=== PATIENT | female | born 1970 | race Caucasian/White ===

== ENCOUNTER 2017-11-24 12:19 | Outpatient (REF) | payer MEDICAID, SELFPAY ==
[2017-11-27 12:56] LABS: Lyme Ab w Rflx to Lyme Confirm Negative
[2017-11-28 14:06] LABS: Anaplasma phagocytophilum Negative (Negative); B. miyamotoi PCR Negative (Negative); Babesia divergens/MO-1 Negative (Negative); Babesia duncani Negative (Negative); Babesia microti Negative (Negative); Ehrlichia chaffeensis Negative (Negative); Ehrlichia ewingii/canis Negative (Negative); Ehrlichia muris eauclairensis Negative (Negative)
== END 2017-11-24 12:20 ==
LOC: NCHCN 12:19
PROVIDERS: PCP Nurse Practitioner Family; Visit Provider Nurse Practitioner Family
DX: Z11.8 Encounter for screening for other infectious and parasitic diseases (principal)
CPT/HCPCS: 86618; 87798

== ENCOUNTER 2018-05-31 09:15 | Outpatient (REF) | payer MEDICAID, SELFPAY ==
[2018-05-31 21:25] LABS: Hemoglobin A1C 5.8 % (4.5-6.2)
[2018-05-31 21:27] LABS: ALT 24 U/L (12-78); AST 16 U/L (15-37); Alkaline Phosphatase 104 U/L (46-116); Anion Gap 4.8 mmol/L (3-11); BUN 19 mg/dL (7-18); Bilirubin, Total 0.5 mg/dL (0.2-1.0); CO2 32.2 mmol/L (21.0-32.0); CREATININE 0.98 mg/dL (0.55-1.02); Calcium 9.5 mg/dL (8.5-10.1); Chloride 101 mmol/L (98-107); Cholesterol 277 mg/dL (50-200); Glucose 104 mg/dL (70-100); HDL Cholesterol 44 mg/dL (40-60); LDL CHOLESTEROL 186 mg/dL (<100); Potassium 4.4 mmol/L (3.5-5.1); Sodium 138 mmol/L (136-145); Total Protein 7.8 g/dL (6.4-8.2); Triglyceride 203 mg/dL (30-150)
== END 2018-05-31 09:35 ==
LOC: NCHCN 09:15
PROVIDERS: PCP Nurse Practitioner Family; Visit Provider Nurse Practitioner Family
DX: R07.9 Chest pain, unspecified (principal); E66.9 Obesity, unspecified
CPT/HCPCS: 80053; 80061; 83721; 83036

== ENCOUNTER 2018-11-30 13:50 | Outpatient (REF) | payer MEDICAID, SELFPAY ==
[2018-11-30 22:10] LABS: ALT 28 U/L (14-59); AST 16 U/L (15-37); Albumin 4.1 g/dL (3.4-5.0); Alkaline Phosphatase 98 U/L (46-116); Anion Gap 10.4 mmol/L (3-11); BUN 18 mg/dL (7-18); Bilirubin, Total 0.3 mg/dL (0.2-1.0); CO2 28.6 mmol/L (21.0-32.0); CREATININE 1.07 mg/dL (0.55-1.02); Calcium 9.2 mg/dL (8.5-10.1); Calculated LDL 129 mg/dL; Chloride 98 mmol/L (98-107); Cholesterol 200 mg/dL (50-200); Estimated GFR 54.73 (mL/min/1.73m2); Glucose 100 mg/dL (70-100); HDL Cholesterol 50 mg/dL (40-60); Potassium 4.4 mmol/L (3.5-5.1); Sodium 137 mmol/L (136-145); Triglyceride 107 mg/dL (30-150)
== END 2018-11-30 14:10 ==
LOC: NCHCN 13:50
PROVIDERS: PCP Nurse Practitioner Family; Visit Provider Nurse Practitioner Family
DX: R73.09 Other abnormal glucose (principal); I10 Essential (primary) hypertension; E78.5 Hyperlipidemia, unspecified; F41.9 Anxiety disorder, unspecified; M79.7 Fibromyalgia
CPT/HCPCS: 80053; 80061; 83036

== ENCOUNTER 2019-07-30 08:38 | Outpatient (REF) | payer MEDICAID, SELFPAY ==
[2019-07-30 22:09] LABS: Anion Gap 5.7 mmol/L (3-11); BUN 17 mg/dL (7-18); CO2 34.3 mmol/L (21.0-32.0); CREATININE 1.02 mg/dL (0.55-1.02); Calcium 9.1 mg/dL (8.5-10.1); Chloride 98 mmol/L (98-107); Cholesterol 220 mg/dL (<200); Glucose 124 mg/dL (74-106); HDL Cholesterol 34 mg/dL (40-60); Potassium 3.5 mmol/L (3.5-5.1); Sodium 138 mmol/L (136-145); Triglyceride 484 mg/dL (<150)
[2019-07-30 22:14] LABS: Hemoglobin A1C 5.8 % (3.8-5.6)
[2019-07-30 22:21] LABS: LDL CHOLESTEROL 96 mg/dL (<100)
== END 2019-07-30 08:58 ==
LOC: NCHCN 08:38
PROVIDERS: PCP Nurse Practitioner Family; Visit Provider Nurse Practitioner Family
DX: I10 Essential (primary) hypertension (principal); E78.5 Hyperlipidemia, unspecified; R73.03 Prediabetes
CPT/HCPCS: 80048; 80061; 83721; 83036

== ENCOUNTER 2019-12-25 19:43 | Outpatient (REF) | payer MEDICAID, SELFPAY ==
--- NOTE | 2019-12-25 14:45 | SKI_PTH ---
PATIENT: Mili Yu LOC: [facility] U#:[id number] AGE/SX: 49/F ROOM: RE12/25/[address]: Kala Gonzalez : 1970 BED: DIS: 12/25/2019 SPEC #: [id number] RECD: 12/26/19 12:23 STATUS: LASHANDA REQ #: [id number] YUNIOR: 12/25/19 14:[address]: Kala Gonzalez DEPT: Surgical Specimen RECD BY: Mariela Dias ENTERED: 12/26/19 12:23 SP TYPE: VICTORINA DOAN DR: Shivani Jose Tissues: 1 - SKIN BIOPSY(SHAVE/PUNCH) Procedures: SKIN LEVEL 4 Comments: [id number]
== END 2019-12-25 20:03 ==
LOC: NCHCN 19:43
PROVIDERS: PCP Nurse Practitioner Family; Visit Provider Nurse Practitioner Community Health
DX: L43.8 Other lichen planus (principal)
CPT/HCPCS: 88305

== ENCOUNTER 2020-07-28 14:56 | Outpatient (REF) | payer MEDICAID, SELFPAY ==
[2020-07-28 21:17] LABS: Anion Gap 9.5 mmol/L (3-11); BUN 22 mg/dL (7-18); CO2 28.5 mmol/L (21.0-32.0); CREATININE 1.1 mg/dL (0.55-1.02); Calcium 9.3 mg/dL (8.5-10.1); Chloride 102 mmol/L (98-107); Estimated GFR 52.58 (mL/min/1.73m2); Glucose 161 mg/dL (74-106); Magnesium 1.9 mg/dL (1.8-2.4); Sodium 140 mmol/L (136-145); Vitamin B12 881 pg/mL (193-986)
== END 2020-07-28 14:57 | disposition home or self-care (01) ==
LOC: NCHCN 14:56
PROVIDERS: PCP Nurse Practitioner Family; Visit Provider Nurse Practitioner Family
DX: R73.03 Prediabetes (principal); I10 Essential (primary) hypertension; Z79.899 Other long term (current) drug therapy
CPT/HCPCS: 80048; 82607; 83036; 83735

== ENCOUNTER 2021-01-28 15:32 | Outpatient (REF) | payer MEDICAID, SELFPAY ==
[2021-01-28 15:18] LABS: HCT 42.4 % (36.0-46.0); MCH 30.8 pg (27.0-33.0); MCV 93.2 fL (80-95); MPV 10.5 fL (8.0-11.0); Platelet Count 338 10^3/uL (130-400); RBC 4.55 10^6/uL (3.93-5.22); RDW 12.4 % (11.7-14.6); WBC 8.49 10^3/uL (4.4-10.8)
[2021-01-28 15:45] LABS: Anion Gap 9.4 mmol/L (3-11); BUN 16 mg/dL (7-18); CO2 32.6 mmol/L (21.0-32.0); Calcium 9.4 mg/dL (8.5-10.1); Calculated LDL 98 mg/dL (<100); Chloride 100 mmol/L (98-107); Cholesterol 190 mg/dL (<200); Estimated GFR 58.69 (mL/min/1.73m2); Glucose 109 mg/dL (74-106); HDL Cholesterol 46 mg/dL (40-60); Potassium 3.8 mmol/L (3.5-5.1); Sodium 142 mmol/L (136-145); Triglyceride 231 mg/dL (<150)
== END 2021-01-28 15:33 | disposition home or self-care (01) ==
LOC: NCHCN 15:32
PROVIDERS: PCP Nurse Practitioner Family; Visit Provider Nurse Practitioner Family
DX: R53.83 Other fatigue (principal); E78.5 Hyperlipidemia, unspecified; E66.9 Obesity, unspecified
CPT/HCPCS: 80048; 80061; 82306; 85027

== ENCOUNTER 2021-07-27 10:00 | Outpatient (REF) | payer MEDICAID, SELFPAY ==
--- NOTE | 2021-07-27 08:30 | PAPFT_PTH ---
PATIENT: Mili Yu LOC: [facility]#:[id number] AGE/SX: 51/F ROOM: RE07/27/[address]: Shivani Jose : 1970 BED: DIS: 07/27/2021 SPEC #: [id number] RECD: 07/27/21 16:35 STATUS: LASHANDA DAVIS #: [id number] YUNIOR: 07/27/21 08:[address]: Shivani Blum DEPT: [facility] Cytology RECD BY: Mike Tariq Tissues: 1 - CX/ENDOCX FOR PAP SMEARS Procedures: PAP THIN PREP/[facility] Screening HPV DNA PROBE Comments: [id number] (CHLAMYDIA/GC)
--- OUTSIDE RECORDS SUMMARY | 2021-07-27 10:05 | XMS_ITS | CCD ---
:1970 Author Care Team Providers Name Role Phone Ramos MANRIQUEZ Attending Physician Unavailable Vital Signs Unknown or Not Available. Allergies Unknown or Not Available. Procedures Unknown or Not Available. History of Immunizations Unknown or Not Available. Problems Unknown or Not Available. Results [facility] TIA LASSITERX* - Collect Date/[place] e: 03/12/2021 09:49 Test Name Code Test Result Test Units Test Ref Range SOURCE= Anterior nasal N/A Tier- PRE-OP N/A SARS COV2 RNA: 08883-2 NEGATIVE N/A REFERENCE RAN GE: NEGAT Active Medications Unknown or Not Available. Medications Administered During Visit Unknown or Not Available. Encounters Encounter Diagnosis Diagnosis Code Start Date Pre-surgery testing [id number] 03/12/2021 Social History Smoking Status Code Start Date End Date Never smoker [id number] Patient Decision Aids Unknown or Not Available. Discharge Instructions You were admitted to [facility] on 03/12/2021 06:27 with a principal diagnosis of Encounter for preprocedural laboratory examination You had the following tests done: KEISHAJOSE MIXONIX* You were discharged from [facility] on 03/12/2021 06:27 Should you have any questions prior to d ischarge, please contact a member of your healthcare team. If you have left the spital and have any questions, please contact your primary care physician. Chief Complaint and Reason For Visit Unknown or Not Available. Function Status Unknown or Not Available. Plan of Care Unknown or Not Available. Referral/Transition of Care Unknown or Not Available.
--- OUTSIDE RECORDS SUMMARY | 2021-07-27 10:05 | XMS_ITS ---
:1970 Author Care Team Providers Name Role Phone GLENN MANCILLA [employer]ER Primary Care Provider [phone] MICHELL CHAPMAN MD Neurologist [phone] [facility] OTHER [phone] Allergies Code Code System Name Reaction Severity Status Onset [id number] RxNorm Cipro ? ? Active ? Elavil Other ? Active ? [id number] RxNorm Neurontin ? ? Active ? Sulfa ? ? Active ? (Sulfonamide Antibiotics) Medications Name Status Start Date Stop Date ? ? amlodipine besylate (bulk) Completed ? 12/13 5mg tab daily bupropion HCl 150 mg tablet,12 hr sustained-release(sm oking deterrent) Completed ? 12/13/2017 Take 1 tablet twice a day by oral route. cannabidiol (CBD) oral oil Active ? Not a vailable Take by oral route. Crestor 5 mg tablet Active ? Not availabl e Take 1 tablet every day by oral route. Cymbalta 60 mg capsule,delayed release Active ? Not available Take 1 capsule every day by oral route. doxepin 10 mg capsule Active ? Not availa ble take 1 PO QHS fluoxetine 20 mg capsule Completed ? 018 Take 1 capsule every day by oral route. hydrochlorothiazide 25 mg tablet Active ? Not available Take 1 tablet every day by oral route. Imitrex 100 mg tablet Active ? Not availa ble Take 1 tablet twice a day by oral route as needed. lorazepam 0.5 mg tablet Active ? Not avai lable Take 1 tablet by oral route as needed. multivitamin Active ? Not available omeprazole 10 mg capsule,delayed release Active ? Not available Take 1 capsule twice a day by oral route. simvastatin Completed ? 12/13/2017 10mg trazodone 50 mg tablet Completed ? 9 Take 1 tablet by oral route as needed. Problems Name Status Onset Date Source ? Psychophysiologic Insomnia Active 12/13/2017 ? Restless Legs Active 12/13/2017 ? Insomnia Active 05/04/2018 ? Hyperlipidemia Active ? ? Obesity Active ? ? Anxiety Active ? ? Depressive Disorder Active ? ? Obstructive Sleep Apnea Syndrome Active ? ? Migraine Active ? ? Hypertensive Disorder Active ? ? Rhinitis Active ? ? Laryngopharyngeal Reflux Active ? ? Dysmenorrhea Active ? ? Chronic Pelvic Pain of Female Active ? ? Osteoarthritis Active ? ? Degeneration of Intervertebral Disc Active ? ? Tendinitis Active ? ? Ganglion Cyst Active ? ? Plantar Fasciitis Active ? ? Fibromyalgia Active ? ? Neuralgia Active ? ? Fatigue Active ? ? Snoring Active ? ? Atypical Chest Pain Active ? ? Rheumatoid Factor Positive Active ? ? Procedures Date Name Performed by ? 12/13/2017 Polysomnogram [facility] [address] [place] [address] (Work Place) Results Lab Results Date Name Specimen Result Interpretation Description Value Range Status Address ? 01/09/2018 Ferritin, ? No observation ? ? ? [facility] Serum or recorded. (Lab) : [address] 01/09/2018 TSH, Serum, ? No observation ? ? ? [facility] Reflex Free recorded. (L ab): [address] Past Encounters None recorded. Social History Tobacco Smoking Status Never Smoker Vaccine List Vaccine Type COVID-19, mRNA, LNP-S, PF, 100 mcg/0.5 m L dose (Moderna) 07/02/2020?0.5 mL 07/30/2020?0.5 mL Plan of Care Reminders Provider Appointments None ? ? recorded. Lab None ? ? recorded. Referral None ? ? recorded. Procedures None ? ? recorded. Surgeries None ? ? recorded. Imaging None ? ? recorded. Vitals 08/02/2019 10:00AM Office 30 Height Weight BMI 165.1 cm 74.84 kg 27.5 kg/m2 09/07/2018 10:30AM Office 30 Height Weight BMI Blood Pressure 165.1 cm 79.38 kg 29.1 kg/m2 124/90 mm[Hg] 05/04/2018 09:45AM Office 30 Height Weight BMI Blood Pressure 165.1 cm 150/100 mm[Hg] 02/23/2018 11:15AM Office 30 Height Weight BMI Blood Pressure 165.1 cm 80.74 kg 29.6 kg/m2 125/85 mm[Hg] 12/13/2017 10:45AM New Patient 45 Height Weight BMI Blood Pressure 165.1 cm 82.05 kg 30.1 kg/m2 118/94 mm[Hg]
--- OUTSIDE RECORDS SUMMARY | 2021-07-27 10:05 | XMS_ITS | CCD ---
:1970 Author Care Team Providers Name Role Phone Indira MANCILLA Attending Physician Unavailable Vital Signs Unknown or Not Available. Allergies Unknown or Not Available. Procedures Unknown or Not Available. History of Immunizations Unknown or Not Available. Problems Unknown or Not Available. Results Unknown or Not Available. Active Medications Unknown or Not Available. Medications Administered During Visit Unknown or Not Available. Encounters Encounter Diagnosis Diagnosis Code Start Date Screening mammography [id number] 02/09/2021 Social History Smoking Status Code Start Date End Date Never smoker [id number] Patient Decision Aids Unknown or Not Available. Discharge Instructions You were admitted to [facility] on 02/09/2021 11:06 with a principal diagnosis of Encounter for screening salvatore mogram for malignant neoplasm of breast You were discharged from [facility] on 02/09/2021 11:06 Should you have any questions prior to d ischarge, please contact a member of your healthcare team. If you have left the ho spital and have any questions, please contact your primary care physician. Chief Complaint and Reason For Visit Chief Complaint Date of Onset SCR Function Status Unknown or Not Available. Plan of Care Unknown or Not Available. Referral/Transition of Care Unknown or Not Available.
--- OUTSIDE RECORDS SUMMARY | 2021-07-27 10:06 | XMS_ITS | CCD ---
:1970 Author Care Team Providers Name Role Phone MITRARamos Attending Physician Unavailable Vital Signs Vital Sign Value Unit Date/Time Recent/Initial? BP Systolic 130 mmHg 03/15/2021 13:10 Initial VS BP Diastolic 95 mmHg 03/15/2021 13:10 Initial VS Respiratory Rate 14 bpm 03/15/2021 13:10 Initial VS Heart Rate 90 bpm 03/15/2021 13:10 Initial VS O2 % BldC Oximetry 100 % 03/15/2021 13:10 Initi al VS Body Temperature 36.3 degrees 03/15/2021 13:10 Initial VS Allergies Allergy Code Allergy Type Reaction Status SULFA (sulfonamide) 0 Drug allergy RASH Active PINEAPPLE 0 Food allergy Hives Active CIPRO [id number] Drug allergy Anaphylaxis Active Procedures Procedure Code Procedure Type Date Colonoscopy, [place] [address] CPT 03/15/2021 Splenic Flexure; w/Bx, Single/Multiple History of Immunizations Unknown or Not Available. Problems Unknown or Not Available. Results Unknown or Not Available. Active Medications Unknown or Not Available. Medications Administered During Visit Unknown or Not Available. Encounters Encounter Diagnosis Diagnosis Code Start Date Encounter for screening for malignant neoplasm of Z1211 03/15/2021 colon Social History Smoking Status Code Start Date End Date Never smoker [id number] Patient Decision Aids Unknown or Not Available. Discharge Instructions You were admitted to [facility] on 03/15/2021 11:18 with a principal diagnosis of Encounter for screening for malignant neoplasm of colon You had the following procedures done: Colonoscopy, Flexible, Proximal To Splenic Flexure; w/Bx, Singl e/Multiple You were discharged from [facility] on 03/15/2021 14:00 Should you have any questions prior to [...]
--- OUTSIDE RECORDS SUMMARY | 2021-07-27 10:06 | XMS_ITS | CCD ---
:1970 Author Care Team Providers Name Role Phone Gina DUBOSE Attending Physician Unavailable Vital Signs Unknown or Not Available. Allergies Allergy Code Allergy Type Reaction Status SULFA (sulfonamide) 0 Drug allergy RASH Active PINEAPPLE 0 Food allergy Hives Active CIPRO 015998 Drug allergy Anaphylaxis Active Procedures Unknown or Not Available. History of Immunizations Unknown or Not Available. Problems Unknown or Not Available. Results [facility] COVID RHEONIX* - Collect Date/[place] e: 04/15/2021 11:11 Test Name Code Test Result Test Units Test Ref Range Tier- EXPOSURE N/A SARS COV2 RNA: 99737-3 NEGATIVE N/A REFERENCE RAN GE: NEGAT Active Medications Unknown or Not Available. Medications Administered During Visit Unknown or Not Available. Encounters Encounter Diagnosis Diagnosis Code Start Date Exposure to SARS-CoV-2 [id number] 04/15/2021 Social History Smoking Status Code Start Date End Date Never smoker [id number] Patient Decision Aids Unknown or Not Available. Discharge Instructions You were admitted to [facility] on 04/15/2021 18:14 with a principal diagnosis of Contact with and (suspected ) exposure to COVID-19 You had the following tests done: [facility] COVID RHEONIX* You were discharged from [facility] on 04/15/2021 18:14 Should you have any questions prior to [...]
[2021-07-30 16:39] LABS: Chlamydia Result Negative (Negative); GC Result Negative (Negative)
== END 2021-07-27 10:01 | disposition home or self-care (01) ==
LOC: NCHCN 10:00
PROVIDERS: PCP Nurse Practitioner Family; Visit Provider Nurse Practitioner Family
DX: Z11.3 Encounter for screening for infections with a predominantly sexual mode of transmission (principal); Z12.4 Encounter for screening for malignant neoplasm of cervix; Z11.51 Encounter for screening for human papillomavirus (HPV)
CPT/HCPCS: 87491; 87591; 88142; 87624

== ENCOUNTER 2021-11-18 18:04 | Outpatient (REF) | payer MEDICAID, SELFPAY ==
[2021-11-18 15:58] LABS: ALT 27 U/L (14-59); AST 20 U/L (15-37); Albumin 3.9 g/dL (3.4-5.0); Alkaline Phosphatase 87 U/L (46-116); Anion Gap 10.2 mmol/L (3-11); BUN 17 mg/dL (7-18); Bilirubin, Total 0.4 mg/dL (0.2-1.0); CO2 29.8 mmol/L (21.0-32.0); Calcium 9.1 mg/dL (8.5-10.1); Chloride 101 mmol/L (98-107); Estimated GFR 58.45 (mL/min/1.73m2); Glucose 134 mg/dL (74-106); Potassium 4.2 mmol/L (3.5-5.1); Sodium 141 mmol/L (136-145); Total Protein 7.9 g/dL (6.4-8.2)
[2021-11-18 15:59] LABS: Hemoglobin A1C 6.6 % (<5.7)
== END 2021-11-18 18:05 | disposition home or self-care (01) ==
LOC: NCHCN 18:04
PROVIDERS: PCP Nurse Practitioner Family; Visit Provider Nurse Practitioner Family
DX: E11.9 Type 2 diabetes mellitus without complications (principal); I10 Essential (primary) hypertension; E66.9 Obesity, unspecified; M79.7 Fibromyalgia
CPT/HCPCS: 80053; 83036

== ENCOUNTER 2022-04-11 17:13 | Outpatient (REF) | payer MEDICAID, SELFPAY ==
[2022-04-11 21:40] LABS: COMMENT (LAB VIEW ONLY) 99.82 mg/dL; Microalb ug/mg Crea 7.4 ug/mg Cr
== END 2022-04-11 17:14 | disposition home or self-care (01) ==
LOC: NCHCN 17:13
PROVIDERS: PCP Nurse Practitioner Family; Visit Provider Nurse Practitioner Family
DX: E11.9 Type 2 diabetes mellitus without complications (principal)
CPT/HCPCS: 82043; 82570

== ENCOUNTER 2022-04-26 15:09 | Outpatient (REF) | payer MEDICAID, SELFPAY ==
[2022-04-26 14:50] LABS: TSH 1.28 uIU/mL (0.36-3.74)
[2022-04-28 13:53] LABS: IgA 173 mg/dL (85-499); Interpretation (See Note); Tissue Transglutaminase IgA <1.2 U/mL (<4.0)
== END 2022-04-26 15:10 | disposition home or self-care (01) ==
LOC: NCHCN 15:09
PROVIDERS: PCP Nurse Practitioner Family; Visit Provider Nurse Practitioner Family
DX: K29.70 Gastritis, unspecified, without bleeding (principal); E11.9 Type 2 diabetes mellitus without complications; I10 Essential (primary) hypertension
CPT/HCPCS: 82784; 83516; 85027; 84443

== ENCOUNTER 2022-04-27 11:56 | Outpatient (REF) | payer MEDICAID, SELFPAY ==
[2022-04-27 14:14] LABS: HCT 40.6 % (36.0-46.0); HGB 13.3 g/dL (11.2-15.7); MCH 30.8 pg (27.0-33.0); MCHC 32.8 % (32.0-36.0); MCV 94 fL (80-95); MPV 10.1 fL (8.0-11.0); Platelet Count 345 10^3/uL (130-400); RBC 4.32 10^6/uL (3.93-5.22); RDW 11.6 % (11.7-14.6); RDW-SD 40.3 fL; WBC 6.86 10^3/uL (4.4-10.8)
== END 2022-04-27 11:57 | disposition home or self-care (01) ==
LOC: NCHCN 11:56
PROVIDERS: PCP Nurse Practitioner Family; Visit Provider Nurse Practitioner Family
DX: K29.70 Gastritis, unspecified, without bleeding (principal); Z13.29 Encounter for screening for other suspected endocrine disorder
CPT/HCPCS: 85027

== ENCOUNTER 2022-05-05 14:54 | Outpatient (REF) | payer MEDICAID, SELFPAY | END 2022-05-05 14:55 | disposition home or self-care (01) | LOC: NCHCN 14:54 | PROVIDERS: PCP Nurse Practitioner Family; Visit Provider Nurse Practitioner Family | DX: R30.0 Dysuria (principal) | CPT/HCPCS: 87086 ==

== ENCOUNTER 2022-10-31 18:00 | Outpatient (REF) | payer MEDICAID, SELFPAY ==
[2022-11-02 14:50] LABS: HSV 1 DNA Result Positive (Negative); HSV 2 DNA Result Negative (Negative)
[2022-11-02 14:51] LABS: Varicella Zoster DNA Result Negative ((See Note))
== END 2022-10-31 18:01 | disposition home or self-care (01) ==
LOC: NCHCN 18:00
PROVIDERS: PCP Nurse Practitioner Family; Visit Provider Internal Medicine
DX: B00.9 Herpesviral infection, unspecified (principal)
CPT/HCPCS: 87529; 87798

== ENCOUNTER 2022-12-01 14:55 | Outpatient (REF) | payer MEDICAID, SELFPAY ==
[2022-12-01 15:56] LABS: Anion Gap 5.1 mmol/L (3-11); BUN 20 mg/dL (7-18); CO2 32.9 mmol/L (21.0-32.0); Calcium 9.9 mg/dL (8.5-10.1); Calculated LDL 94 mg/dL (<100); Chloride 100 mmol/L (98-107); Cholesterol 164 mg/dL (<200); Estimated GFR 67.78 (mL/min/1.73m2); Glucose 116 mg/dL (74-106); HDL Cholesterol 45 mg/dL (40-60); Potassium 4.2 mmol/L (3.5-5.1); Sodium 138 mmol/L (136-145); Triglyceride 125 mg/dL (<150)
== END 2022-12-01 14:56 | disposition home or self-care (01) ==
LOC: NCHCN 14:55
PROVIDERS: PCP Nurse Practitioner Family; Visit Provider Nurse Practitioner Family
DX: I10 Essential (primary) hypertension (principal); E78.5 Hyperlipidemia, unspecified
CPT/HCPCS: 80048; 80061

== ENCOUNTER 2023-05-30 21:58 | Outpatient (REF) | payer SELFPAY ==
[2023-05-30 21:42] LABS: Microalb ug/mg Crea 8.8 ug/mg Cr
== END 2023-05-30 21:59 | disposition home or self-care (01) ==
LOC: NCHCN 21:58
PROVIDERS: PCP Nurse Practitioner Family; Visit Provider Nurse Practitioner Family
DX: E11.9 Type 2 diabetes mellitus without complications (principal)
CPT/HCPCS: 82043; 82570

== ENCOUNTER 2023-10-26 14:52 | Outpatient (REF) | payer MEDICARE, SELFPAY | END 2023-10-26 14:53 | disposition home or self-care (01) | LOC: NCHCN 14:52 | PROVIDERS: PCP Nurse Practitioner Family; Visit Provider Family Medicine | DX: R82.998 Other abnormal findings in urine (principal) | CPT/HCPCS: 87077; 87086; 87186 ==

== ENCOUNTER 2023-11-20 18:24 | Outpatient (REF) | payer MEDICARE, SELFPAY ==
[2023-11-20 14:31] LABS: HCT 41.2 % (36.0-46.0); HGB 13.8 g/dL (11.2-15.7); MCH 31.7 pg (27.0-33.0); MCHC 33.5 % (32.0-36.0); MCV 95 fL (80-95); MPV 9.9 fL (8.0-11.0); Platelet Count 336 10^3/uL (130-400); RBC 4.35 10^6/uL (3.93-5.22); RDW 11.7 % (11.7-14.6); WBC 6.48 10^3/uL (4.4-10.8)
[2023-11-20 14:51] LABS: Hemoglobin A1C 6.2 % (<5.7)
[2023-11-20 15:17] LABS: ALT 28 U/L (14-59); AST 21 U/L (15-37); Albumin 3.7 g/dL (3.4-5.0); Alkaline Phosphatase 105 U/L (46-116); Anion Gap 5.7 mmol/L (3-11); BUN 20 mg/dL (7-18); Bilirubin, Total 0.28 mg/dL (0.2-1.0); CO2 32.3 mmol/L (21.0-32.0); Calcium 9.6 mg/dL (8.5-10.1); Calculated LDL 72 mg/dL (<100); Chloride 100 mmol/L (98-107); Cholesterol 146 mg/dL (<200); Estimated GFR 67.36 (mL/min/1.73m2); Glucose 128 mg/dL (74-106); HDL Cholesterol 38 mg/dL (40-60); Potassium 3.9 mmol/L (3.5-5.1); Sodium 138 mmol/L (136-145); Total Protein 7.6 g/dL (6.4-8.2); Triglyceride 183 mg/dL (<150)
== END 2023-11-20 18:25 | disposition home or self-care (01) ==
LOC: NCHCN 18:24
PROVIDERS: PCP Nurse Practitioner Family; Visit Provider Nurse Practitioner Family
DX: I10 Essential (primary) hypertension (principal); E11.9 Type 2 diabetes mellitus without complications
CPT/HCPCS: 80053; 80061; 85027; 83036; 84443

== ENCOUNTER 2023-11-28 16:56 | Outpatient (REF) | payer MEDICARE, SELFPAY ==
[2023-11-28 14:15] LABS: Bilirubin Negative (Negative); Blood Trace-lysed (Negative); Clarity Clear (Clear); Glucose Negative (Negative); Ketones Negative (Negative); Leukocyte Esterase Negative (Negative); Nitrite Negative (Negative); Specific Gravity 1.025 (1.005-1.025); Urobilinogen 0.2 mg/dL (Up to 0.2); pH 6.5 (5-8)
[2023-11-28 14:43] LABS: Bacteria Negative HPF (Negative); C & S Indicated? No; Casts Negative LPF (Negative); Crystals Negative HPF (Negative); Epithelial Cells Negative HPF (Negative); Mucus Negative (Negative); RBC Negative HPF (0-2); WBC 0-2 HPF (0-5)
== END 2023-11-28 16:57 | disposition home or self-care (01) ==
LOC: NCHCN 16:56
PROVIDERS: PCP Nurse Practitioner Family; Visit Provider Nurse Practitioner Family
DX: R31.29 Other microscopic hematuria (principal)
CPT/HCPCS: 81003; 81015

== ENCOUNTER 2024-03-29 12:12 | Outpatient (REF) | payer MEDICARE, SELFPAY ==
[2024-03-29 16:17] LABS: TSH (W/Ref FT4) 2.32 uIU/mL (0.36-3.74)
[2024-03-29 22:15] LABS: Estradiol 200 pg/mL (See Note)
[2024-03-29 22:21] LABS: FSH 47.3 mIU/mL (See Note)
[2024-03-29 22:29] LABS: LH 19.4 mIU/mL (See Note)
== END 2024-03-29 12:13 | disposition home or self-care (01) ==
LOC: NCHCN 12:12
PROVIDERS: PCP Nurse Practitioner Family; Visit Provider Family Medicine
DX: N93.9 Abnormal uterine and vaginal bleeding, unspecified (principal)
CPT/HCPCS: 82670; 83001; 83002; 84443

== ENCOUNTER 2024-08-05 15:03 | Outpatient (REF) | payer MEDICARE, SELFPAY ==
[2024-08-05 21:21] LABS: HCT 40.4 % (36.0-46.0); HGB 13.7 g/dL (11.2-15.7); MCH 31.9 pg (27.0-33.0); MCHC 33.9 % (32.0-36.0); MCV 94 fL (80-95); MPV 10.6 fL (8.0-11.0); Platelet Count 313 10^3/uL (130-400); RDW 11.9 % (11.7-14.6); RDW-SD 40.9 fL; WBC 8.86 10^3/uL (4.4-10.8)
[2024-08-05 21:43] LABS: ALT 29 U/L (14-59); AST 21 U/L (15-37); Albumin 4.1 g/dL (3.4-5.0); Alkaline Phosphatase 94 U/L (46-116); Anion Gap 5.1 mmol/L (3-11); BUN 21 mg/dL (7-18); Bilirubin, Total 0.4 mg/dL (0.2-1.0); CO2 30.9 mmol/L (21.0-32.0); CREATININE 0.9 mg/dL (0.55-1.02); Calcium 9.8 mg/dL (8.5-10.1); Chloride 102 mmol/L (98-107); Estimated GFR 75.97 (mL/min/1.73m2); Glucose 99 mg/dL (74-106); Potassium 4.1 mmol/L (3.5-5.1); Sodium 138 mmol/L (136-145); TSH 1.64 uIU/mL (0.36-3.74); Total Protein 7.6 g/dL (6.4-8.2)
[2024-08-06 20:13] LABS: COMMENT (LAB VIEW ONLY) 49.24 mg/dL; Microalb ug/mg Crea 9.3 ug/mg Cr
[2024-08-06 21:06] LABS: Calculated LDL 91 mg/dL (<100); Cholesterol 179 mg/dL (<200); HDL Cholesterol 43 mg/dL (>or=50); Triglyceride 225 mg/dL (<150)
== END 2024-08-05 15:04 | disposition home or self-care (01) ==
LOC: NCHCN 15:03
PROVIDERS: PCP Nurse Practitioner Family; Visit Provider Nurse Practitioner Family
DX: I10 Essential (primary) hypertension (principal); E11.9 Type 2 diabetes mellitus without complications; Z13.29 Encounter for screening for other suspected endocrine disorder
CPT/HCPCS: 80053; 80061; 85027; 82043; 82570; 83036; 84443